=== PATIENT | male | born 1985 | race Hispanic/Latino ===

== ENCOUNTER 2019-04-25 07:38 | Emergency (ER) | payer SELFPAY ==
[2019-04-25 08:38] LABS: #Lymphocytes 0.8 thou/uL (1.20-3.40); #Monocytes 0.4 thou/uL (0.11-0.59); #Neutrophils 6.2 thou/uL (1.40-6.50); %Basophils 0.1 % (0.0-1.0); %Eosinophils 0.2 % (0.0-10.0); %Lymphocytes 11.2 % (21.0-51.0); %Monocytes 4.9 % (0.0-10.0); %Neutrophils 83.7 % (42.0-75.0); Hemoglobin 15.6 g/dL (14.0-18.0); Mean Corpuscular HGB CONC 34.8 g/dL (32.0-36.0); Mean Corpuscular Hemoglobin 31.1 pg (27.0-31.0); Mean Corpuscular Volume 89.4 fL (78.0-98.0); Mean Platelet Volume 8.2 fL (7.4-10.4); Platelet Count 199 thou/uL (130-400); RBC Distribution Width 11.4 % (11.5-14.5); Red Blood Cell (RBC) Count 5.02 mill/uL (4.70-6.10); White Blood Cell (WBC) Count 7.4 thou/uL (4.8-10.8)
[2019-04-25] MEDS ORDERED: Ondansetron PF 4 MG/2 ML Vial ONE (09:01)
[2019-04-25 09:10] LABS: ALT (SGPT) 12 U/L (8-55); AST (SGOT) 15 U/L (5-34); Albumin 4.8 g/dL (3.5-5.0); Alkaline Phosphatase 72 U/L (40-150); Anion Gap 14 mmol/L (10-20); BUN (Urea Nitrogen) 10 mg/dL (8.9-20.6); Bilirubin, Total 1.4 mg/dL (0.2-1.2); CK (CPK) 108 U/L (30-200); Calc. Creatinine Clearance 0 mL/min (70-130); Calcium 9.6 mg/dL (7.8-10.44); Carbon Dioxide 24 mmol/L (22-29); Chloride 101 mmol/L (98-107); Estimated GFR-MDRD 85; Globulin 2.8 g/dL (2.4-3.5); Glucose 115 mg/dL (70-105); Lipase 32 U/L (8-78); Potassium 3.9 mmol/L (3.5-5.1); Protein, Total 7.6 g/dL (6.0-8.3); Sodium 135 mmol/L (136-145)
== END 2019-04-25 10:29 | disposition home or self-care (01) ==
LOC: ERS 07:38
DX: K52.9 Noninfective gastroenteritis and colitis, unspecified (principal); E86.0 Dehydration
CPT/HCPCS: 36415; 80053; 82550; 83690; 85025; 96361; 96374; J2405